=== PATIENT | male | born 1975 | race African-American/Black ===

== ENCOUNTER 2019-12-03 09:15 | Emergency (ER) | payer SELFPAY ==
--- NOTE | 2019-12-03 10:11 | EDM.PDOC ---
ED HPI GENERAL MEDICAL PROBLEM - General Chief Complaint: Respiratory Problem Stated Complaint: RESPIRATORY ISSUES Time Seen by Provider: 12/03/19 09:56 Source of Information: Reports: Patient History Limitations: Reports: No Limitations - History of Present Illness INITIAL COMMENTS - FREE TEXT/NARRATIVE: 44-year-old male from [place] presents to the ED with sinus congestion particular in his frontal sinuses ethmoid and sphenoid sinuses for the last 2-1/ 2 weeks. Associated postnasal drip and dark green secretions blown through his nose and coughing up green secretions every morning. He states he just cannot get his breath anymore through his nose. Continues to have a paroxysmal intermittent cough usually worse in the mornings. No hemoptysis. He has had some bleeding from his left nares on an intermittent basis likely due to dry air. Initially he did run a fever but he states he does not think he has had a fever now for the last week. Onset: Sudden Onset Date: 11/17/19 Duration: Day(s):, Chronic, Constant Location: Reports: Face, Chest (Situs with postnasal drip says minimal cough greenish mucus.) Quality: Reports: Pressure Severity: Moderate (In his frontal and ethmoid sinuses behind his eyes.) Improves with: Reports: None Worsens with: Reports: None Context: Denies: Activity, Exercise, Lifting, Sick Contact, Trauma, Other Associated Symptoms: Reports: Cough, cough w sputum, Fever/Chills, Headaches ( With initial onset of illness 2 weeks ago or more. She will headache pain.). Denies: No Other Symptoms, Confusion, Chest Pain, Diaphoresis, Loss of Appetite , Malaise, Nausea/Vomiting, Rash, Seizure, Shortness of Breath, Syncope, Weakness Treatments INSTRUCTOR OF SOCIOLOGY: Reports: Other (see below) (None.) - Related Data Allergies Allergy/AdvReac Type Severity Reaction Status Date / Time No Known Allergies Allergy Verified 12/03/19 10:03 Home Meds: Home Meds Doxycycline [Vibramycin] 100 mg PO BID #24 cap 12/03/19 [Rx] Loratadine/Pseudoephedrine [Claritin-D 12 Hour] 1 tab PO Q12HR #8 tab.er [Rx] Past Medical History - Past Health History Medical/Surgical History: Denies Medical/Surgical History Social & Family History - Tobacco Use Smoking Status *Q: Never Smoker - Living Situation & Occupation Occupation: Employed ED ROS GENERAL - Review of Systems Review Of Systems: See Below Constitutional: Reports: Malaise, Decreased Appetite HEENT: Reports: Sinus Problem, Throat Pain (Mild). Denies: Ear Pain Respiratory: Reports: Cough, Sputum. Denies: Shortness of Breath, Wheezing, Pleuritic Chest Pain, Hemoptysis ([place]) Cardiovascular: Reports: No Symptoms Endocrine: Reports: No Symptoms GI/Abdominal: Reports: No Symptoms : Reports: No Symptoms Musculoskeletal: Reports: No Symptoms Skin: Reports: No Symptoms Neurological: Reports: No Symptoms Psychiatric: Reports: No Symptoms Hematologic/Lymphatic: Reports: No Symptoms Immunologic: Reports: No Symptoms ED EXAM, GENERAL - Physical Exam Exam: See Below Exam Limited By: No Limitations General Appearance: Alert, WD/WN, No Apparent Distress, Other (Patient's does sound very nasally congested. Temperature is 36.7 pulse is 94 and sinus respiratory 16 BP 180/90. Pulse ox 97%.) Eye Exam: Bilateral Eye: Normal Inspection Ears: Normal TMs Nose: Other (Has had some bleeding from the left nasal septum. Deep ulceration. ) Throat/Mouth: Normal Inspection, Normal Lips, Normal Teeth, Normal Oropharynx Head: Atraumatic, Normocephalic Neck: Normal Inspection, Supple, Non-Tender, Full Range of Motion. No: Lymphadenopathy (L), Lymphadenopathy (R) Respiratory/Chest: No Respiratory Distress, Lungs Clear, Normal Breath Sounds, No Accessory Muscle Use. No: Rhonchi, Wheezing Cardiovascular: Normal Peripheral Pulses, Regular Rate, Rhythm, No Edema, No Gallop, No Murmur, No Rub Extremities: Normal Inspection, Normal Range of Motion, Non-Tender Course - Vital Signs Last Recorded V/S: Last Vital Signs Temp 36.7 C 12/03/19 10:01 Pulse 94 12/03/19 10:01 Resp 16 12/03/19 10:01 BP 180/90 H 12/03/19 10:01 Pulse Ox 97 12/03/19 10:01 - Radiology Interpretation Free Text/Narrative:: 44-year-old male presents to the ED with upper respiratory tract infection that has settled in his sinuses for the last 2-1/2 weeks. He feels it is getting worse rather than better. Tremendous amount of pressure in the frontal sinuses and behind his nose and eyes in the ethmoid and sphenoid sinuses. Does have some pain over his maxillary sinuses as well. He is aware of postnasal drip with paroxysmal cough of greenish sputum first thing in the morning and when he blows his nose it started green in color as well. Had some bleeding from his left anterior nare nose at times mostly due to the change in humidity. Patient is from [place]. When he will be treated with doxycycline 100 mg twice daily for 12 days to clear up sinus infection. Claritin-D 12-hour release 1 tablet every morning for the next 8 days to help decongest his sinuses. Advised Polysporin ointment applied to the nasal septum every night at bedtime with the aid of a Q-tip for the next week. Departure - Departure Time of Disposition: 10:07 Disposition: Home, Self-Care 01 Condition: Fair Clinical Impression: Sinusitis chronic, frontal, Bronchitis - Discharge Information *PRESCRIPTION DRUG MONITORING PROGRAM REVIEWED*: Not Applicable *COPY OF PRESCRIPTION DRUG MONITORING REPORT IN PATIENT JOSELITO: Not Applicable Prescriptions: Loratadine/Pseudoephedrine [Claritin-D 12 Hour] 1 tab PO Q12HR #8 tab.er Doxycycline [Vibramycin] 100 mg PO BID #24 cap Instructions: Sinusitis, Adult, [id number] Referrals: PCP,None [Primary Care Provider] - Forms: ED Department Discharge Additional Instructions: Evaluation in the emergency room today in regards to a 2-week history of sinus congestion and sinus drip down the back of your throat causing cough. Diagnosis is sinusitis with postnasal drip. Treatment is to be Claritin-D 12- hour release 1 tablet every morning for the next 8 days to help decongest the sinuses and promote drainage of the sinuses. Antibiotic is to be doxycycline 100 mg twice daily for the next 12 days to help clear up sinusitis and bronchitis as well. Expect marked improvement over the next 3 days. As we discussed nosebleeds are common and [place] in the winter months due to dry air and low humidity. Suggest using Polysporin ointment applied to the inside of each nostril on the bony part or midline of the nose once daily at bedtime with the aid of a Q-tip. I would suggest doing this for about 1 week to allow the lining to heal and this usually prevents further nosebleeds. Sepsis Event Note - Evaluation Sepsis Screening Result: No Definite Risk - Focused Exam Vital Signs: Vital Signs Temp Pulse Resp BP Pulse Ox 12/03/19 10:01 36.7 C 94 16 180/90 H 97 Date Exam was Performed: 12/03/19 Time Exam was Performed: 10:11
== END 2019-12-03 10:26 | disposition home or self-care (01) ==
LOC: JD.ED 09:15
DX: J32.1 Chronic frontal sinusitis (principal); J40 Bronchitis, not specified as acute or chronic
CPT/HCPCS: 99283